=== PATIENT | male | born 1960 | race Caucasian/White ===

== ENCOUNTER → 2019-10-23 11:23 | Outpatient (CLI) | payer MEDICAID, SELFPAY ==
[2016-09-16 16:43] VITALS: BMI 31.7
[2019-10-23 15:09] LABS: AST(SGOT) 26 U/L (15-37); Alanine Aminotransfer ALT/SGPT 42 U/L (16-61); Albumin, Serum 3.9 g/dL (3.2-5.0); Alkaline Phosphatase 93 U/L (45-117); Anion Gap 8 (5-15); BUN 13 mg/dL (7-18); BUN/Creat Ratio 13.8 RATIO (10-20); Calcium,Total 8.8 mg/dL (8.5-10.1); Chloride 102 mmol/L (98-107); Cholesterol 189 mg/dL (200); Creatinine, Serum 0.94 mg/dL (0.70-1.30); EST Glomerular Filtration Rate 88 mL/min (>60); Est Glom Filt Rate - Afr Amer 106 mL/min (>60); Globulin 3.9 g/dL (2.2-4.2); Glucose 93 mg/dL (74-106); High Density Lipoprotein 28 mg/dL; PSA,Total - Annual Screen 0.61 ng/mL (0.00-4.00); Potassium 3.6 mmol/L (3.5-5.1); Protein, Total 7.8 g/dL (6.4-8.2); Sodium Level 137 mmol/L (136-145); Triglycerides 387 mg/dL; Very Low Density Lipoprotein 77 mg/dL (5-40)
[2019-10-23 15:55] LABS: Hemoglobin A1c 5.9 % (4.2-6.3)
== END ==
PROVIDERS: PCP Family Medicine; Referring Provider Family Medicine; Visit Provider Family Medicine
DX: I10 Essential (primary) hypertension (principal); R35.0 Frequency of micturition; Z13.220 Encounter for screening for lipoid disorders; Z12.5 Encounter for screening for malignant neoplasm of prostate
CPT/HCPCS: 36415; 80053; 80061; 83036; 84153; G0103

== ENCOUNTER → 2020-09-20 08:49 | Outpatient (CLI) | payer MEDICAID, SELFPAY ==
--- NOTE | 2020-09-20 08:53 | RAD_ITS ---
STUDY: X-RAY - PELVIS AND RIGHT HIP REASON FOR EXAM: Male, 59 years old. HIP PAIN TECHNIQUE: 3 views of the pelvis and hip. COMPARISON: None. FINDINGS: There is a non-specific bowel gas pattern. Surgical clips are seen in the pelvis most likely secondary to prior bilateral inguinal hernia repair. Normal bilateral iliac wings, sacroiliac joints and visualized sacrum. Normal bilateral superior and inferior pubic rami. Normal pubic symphysis. Normal bilateral ischial tuberosities. Normal visualized femoral head. Normal acetabulum. There is mild articular joint space narrowing of the hip. Mild degree of osteoarthritis of the left hip joint as well. Degenerative changes of the visualized lower lumbar spine. RAD/HIP, UNI W/ Pelvis 2-3 Views IMPRESSION: Mild degree of joint space narrowing of both hip joints. Electronically Signed: Reese Jackson MD at 12:48 EST , Service support ,
== END ==
PROVIDERS: PCP Family Medicine; Referring Provider Chiropractor; Visit Provider Chiropractor
DX: S73.191A Other sprain of right hip, initial encounter (principal); M25.551 Pain in right hip
CPT/HCPCS: 73502

== ENCOUNTER 2021-02-14 17:31 | Emergency (ER) | payer MEDICAID, SELFPAY ==
[2021-02-14 17:32] VITALS: BP 170/100; PULSE 80; RESP 16; TEMP 37.6; O2SAT 96; BMI 34.8
[2021-02-14 17:35] VITALS: BP 170/100; PULSE 80; RESP 16; TEMP 37.6; O2SAT 95
[2021-02-14 18:20] VITALS: O2SAT 95
--- NOTE | 2021-02-14 18:39 | EDS_ITS ---
HPI HPI - URI History of Present Illness Chief Complaint: Sore Throat Informant: patient Onset/Context/Timing Onset: Days (3-4) Context: Gradual Onset Timing: Continuous Current Severity: Moderate Maximum Severity: Moderate Associated Symptoms Associated Symptoms: Positive for Headache, Diarrhea, Nonproductive cough and - (Sore throat, subjective fevers); Negative for Nausea, Vomiting, Shortness of Breath and Chest Pain Narrative Narrative: Patient concerned he may have COVID-19. He has not been vaccinated. Other than hypertension he is healthy. 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 States he was at the [facility] urgent care yesterday and had swab for Covid and a chest x-ray but does not know the results of any of it needs to know. Denies dyspnea, chest discomfort, leg pain or swelling, history of PE/DVT. ROS ROS ED Constitutional Constitutional ED: Reports as per HPI, body ache(s), chills, fever(s) and malaise Eyes Eyes: Denies change in vision or diplopia ENT ENT ED: Reports sore throat; Denies rhinorrhea Cardiovascular Cardiovascular: Denies chest pain or palpitations Respiratory/Chest Respiratory/Chest: Reports cough; Denies dyspnea, excessive phlegm production or hemoptysis Gastrointestinal Gastrointestinal: Reports diarrhea; Denies abdominal pain, nausea or vomiting Genitourinary Genitourinary ED: Denies dysuria or hematuria Musculoskeletal Musculoskeletal: Denies back pain or neck pain Integumentary Denies abscess or rash Neurologic Neurologic: Reports headache(s); Denies paresthesias or weakness Psychiatric Psychiatric: Denies anxiety or suicidal thoughts [facility] Medical History (Updated 02/14/21 @ 21:[address] Donny Palacio MD) Hypertension Home Medications atenolol 75 mg PO DAILY 05/22/13 [History Last Taken 09/16/16] lisinopril 20 mg PO DAILY 02/14/21 [History Last Taken Unknown] omeprazole 20 mg PO DAILY 02/14/21 [History Last Taken Unknown] tadalafil 5 mg PO DAILY 02/14/21 [History Last Taken Unknown] Allergy/AdvReac Type Severity Reaction Status Date / Time Penicillins Allergy Unknown Verified 02/14/21 17:32 venom-honey bee Allergy Swelling Verified 02/14/21 17:32 [bee venom (honey bee)] acetaminophen [From Vicodin] AdvReac Other Verified 02/14/21 17:32 hydrocodone bitartrate AdvReac Other Verified 02/14/21 17:32 [From Vicodin] Social History Smoking Status: Former smoker EXAM Physical Exam Const Vital Signs: 02/14/21 17:32 02/14/21 17:35 02/14/21 18:20 Temperature 99.7 F H 99.7 F H Temperature Source Temporal Temporal Pulse Rate 80 80 Respiratory Rate 16 16 Respiratory Effort Respiratory Pattern Blood Pressure 170/100 H 170/100 H Blood Pressure Mean 123 123 Pulse Ox 96 95 95 Oxygen Delivery Method Room Air Room Air Room Air 02/14/21 19:27 02/14/21 19:31 02/14/21 19:35 Temperature 99.1 F Temperature Source Temporal Pulse Rate 89 Respiratory Rate 16 15 Respiratory Effort Normal Non-Labored Respiratory Pattern Normal Blood Pressure 146/95 H Blood Pressure Mean 112 Pulse Ox 99 99 Oxygen Delivery Method Room Air Room Air Positive well nourished and well developed Constitutional Narrative: Well-appearing conversive in full sentences General Appearance ED: well developed and NAD HEENT Reports moist mucous membranes normocephalic and atraumatic Eyes PERRL and EOMs intact bilaterally Neck full ROM, no lymphadenopathy, supple and no meningeal signs Resp normal respiratory effort and clear to auscultation bilaterally Cardio regular rate, regular rhythm and no murmurs GI non-tender and non-distended Auscultation: normoactive bowel sounds Palpation: soft Back/Spine no CVA tenderness General Back: other FROM Extremity normal to inspection General Extremety ED: Negative for edema, pulses abnormal or tenderness General Extremity: Negative for edema or pulses abnormal Neuro oriented x3, CN's II-XII intact bilaterally and no sensory deficits noted Sensorium / Orientation: awake and alert Motor Exam: strength 5/5 throughout Skin no rashes or lesions noted and no wounds MDM MDM MDM Narrative Medical decision making narrative: Chest x-ray normal, rapid Covid returns positive confirming that he does have Covid. He is not hypoxic, his blood pressure came down from his initial triage blood pressure down to 146/95. His vital signs are stable he is clinically well-appearing does not require hospitalization or oxygen. He is currently 99% on room air. Given his history of hypertension, he may meet criteria for monoclonal antibody treatment so he was referred and discharged advised to isolate. He was offered medications but declined such as Toradol. Lab Data Attestation: I reviewed the patient's lab results. Labs: Laboratory Results - last 24 hr 02/14/21 18:40 Lactic Acid 1.0 Radiography Diagnostic Testing: Radiology Impression Chest X-Ray 02/14/21 18:50 IMPRESSION: No acute radiographic abnormalities. Electronically Signed: Carlos Louie MD at 19:35 EDT Tel , Service support , Discharge Plan Triage Chief Complaint: Sore Throat ED Provider: Donny Palacio Dx/Rx/DC Orders Clinical Impression: COVID-19 Instructions: Coronavirus Disease 2019 (COVID-19): Caring for Yourself or Others, ED - COVID Monoclonal AB Infusion ... Prescriptions: No Action atenolol 100 MG tablet 75 mg PO DAILY RF: 0 lisinopril 20 mg tablet 20 mg PO DAILY RF: 0 tadalafil 5 mg tablet 5 mg PO DAILY RF: 0 omeprazole 20 mg tablet,delayed release (DR/EC) 20 mg PO DAILY RF: 0 Other Ambulatory Orders: COVID: Outpatient Monoclonal Antibody Referral (Routine) Location: None Selected Ordered By: Dr. Donny Palacio Primary Care Provider: Silvio Rowland Referrals: Silvio Rowland MD [Primary Care Provider] - Activity Restrictions/Additional Instructions: You may be a candidate for the Covid monoclonal antibody infusion, its goal is to prevent your COVID-19 from getting worse and requiring hospitalization. If you are a candidate you will receive a phone call regarding it. It is performed as an outpatient, not here now. Disposition Disposition: Home, Self Care
--- NOTE | 2021-02-14 18:50 | RAD_ITS ---
INDICATION: cough EXAMINATION/TECHNIQUE: X-RAY - XR Chest 1 View COMPARISON: None. FINDINGS: The lungs are clear. The cardiomediastinal silhouette is unremarkable. No pleural effusion or pneumothorax. Degenerative changes of the thoracic spine. RAD/Chest 1 View (Portable) IMPRESSION: No acute radiographic abnormalities. Electronically Signed: Carlos Louie MD at 19:35 EDT Tel , Service support ,
[2021-02-14 19:31] VITALS: RESP 16; O2SAT 99
[2021-02-14 19:35] VITALS: BP 146/95; PULSE 89; RESP 15; TEMP 37.3; O2SAT 99
[2021-02-14 21:48] VITALS: BP 135/96; PULSE 75; PULSE 76; RESP 16; RESP 18; TEMP 36.6; O2SAT 97
== END 2021-02-14 21:51 | disposition home or self-care (01) ==
PROVIDERS: Emergency Provider Emergency Medicine; PCP Family Medicine
DX: U07.1 COVID-19 (principal); R19.7 Diarrhea, unspecified; I10 Essential (primary) hypertension; Z79.899 Other long term (current) drug therapy; Z87.891 Personal history of nicotine dependence
CPT/HCPCS: 71045; 83605; 87040; 87426; 94760; 99282

== ENCOUNTER 2021-02-18 14:15 | Outpatient (CLI) | payer MEDICAID, SELFPAY ==
[2021-02-17 11:10] VITALS: BMI 34.8
[2021-02-18 14:29] VITALS: BP 108/78; PULSE 96; RESP 20; TEMP 38.1; O2SAT 95; BMI 34.7
[2021-02-18] MEDS: 0.9% Saline Lock 10 ML Syringe IV ×2 (14:54→15:22)
[2021-02-18 14:56] VITALS: BP 124/77; PULSE 70; RESP 20; TEMP 37.2; O2SAT 99
[2021-02-18 15:22] VITALS: BP 132/85; PULSE 70; RESP 18; TEMP 36.4; O2SAT 99
[2021-02-18 15:52] VITALS: BP 134/66; PULSE 74; RESP 18; TEMP 37.5; O2SAT 97
[2021-02-18 16:22] VITALS: BP 124/70; PULSE 74; RESP 20; TEMP 37.7; O2SAT 96
== END 2021-02-18 16:29 | disposition home or self-care (01) ==
LOC: ICUOUT 14:15 → ICU 14:17
PROVIDERS: PCP Family Medicine; Referring Provider Nurse Practitioner Acute Care; Visit Provider Nurse Practitioner Acute Care
DX: Z23 Encounter for immunization (principal); U07.1 COVID-19
CPT/HCPCS: M0243; A4216; Q0244

== ENCOUNTER 2023-06-09 15:45 | Emergency (ER) | payer MEDICAID, SELFPAY ==
[2023-06-09 15:48] VITALS: BP 167/83; PULSE 59; RESP 14; TEMP 36.3; O2SAT 96; BMI 32.7
--- NOTE | 2023-06-09 16:18 | CT_ITS ---
STUDY: CT BRAIN WITHOUT CONTRAST REASON FOR EXAM: Male, 62 years old. Trauma RADIATION DOSAGE (If Supplied By Facility): CTDIvol = ( 44.99 ) mGy, DLP = ( 812.98 ) mGycm TECHNIQUE: Transaxial CT imaging of the brain was performed without administration of intravenous contrast material. Individualized dose optimization techniques were used for this CT. COMPARISON: No relevant priors. FINDINGS: Normal soft tissue structures. Normal calvarium. Normal size ventricles and extra-axial spaces for the patient''s age. Diminished density of the right caudate head and basal ganglia likely sequela of previous ischemic event. Normal basal ganglia and thalami. Normal brainstem. Normal cerebellum. There is no intracranial hemorrhage. There are no findings of an acute ischemic infarction. Normal visualized paranasal sinuses. CT/Brain/Head without Contrast IMPRESSION: 1. No acute intracranial hemorrhage or mass effect. 2. Right caudate head and basal ganglia lacunar infarctions. Electronically Signed: Kenrick Mcgraw MD ([place]) at 17:23 EST Reading Location ID and State: [facility] / [place] , Service support ,
--- NOTE | 2023-06-09 16:18 | CT_ITS ---
EXAM: CT CERVICAL SPINE WITHOUT INTRAVENOUS CONTRAST CLINICAL INDICATION: Trauma TECHNIQUE: Helically acquired images were obtained of the cervical spine without intravenous contrast. 2D reformatted images were reviewed. This CT exam was performed using one or more of the following dose reduction techniques: automated exposure control, adjustment of the mA and/or kV according to patient size, and/or use of iterative reconstruction technique. RADIATION DOSE: CTDIvol = 24.70 mGy, DLP = 634.01 mGy-cm COMPARISON: No relevant prior studies available. FINDINGS: VERTEBRAE: No destructive bony process. No cervical spine fracture. Anterior spondylosis at multiple cervical levels. DISCS/SPINAL CANAL/NEURAL FORAMINA: Multilevel bilateral foraminal stenosis particularly at C4-C5, C5-C6 6-C7 caused by uncovertebral hypertrophy. 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 Disc space narrowing predominantly at C5-C6 and C6-C7. SOFT TISSUES: Unremarkable. No prevertebral soft tissue swelling. LYMPH NODES: Unremarkable. No cervical adenopathy. LUNG APICES: Unremarkable as visualized. Clear. CT/Spine Cervical without Contras IMPRESSION: No acute findings in the cervical spine. Electronically Signed: Kenrick Mcgraw MD ([place]) at 17:27 EST Reading Location ID and State: [facility] / [place] , Service support ,
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
--- NOTE | 2023-06-09 17:03 | RAD_ITS ---
STUDY: X-RAY - LUMBAR SPINE REASON FOR EXAM: Male, 62 years old. Injury/Pain -- Palpation over L2 and L3 TECHNIQUE: 3 view(s) of the lumbar spine were obtained. COMPARISON: None FINDINGS: Normal lumbar lordosis. There is a levoscoliosis of the lumbar spine. There is a normal alignment of the vertebrae. There is diffuse demineralization with multi-level endplate spondylosis. There is multi-level degenerative disc disease with multi-level disc space narrowing. There is no demonstrated fracture. Multilevel facet arthropathy. The soft tissue structures are unremarkable. RAD/Lumbar Spine 2 or 3 Views IMPRESSION: Degenerative disc disease and facet arthropathy. No compression fracture. Electronically Signed: Kenrick Mcgraw MD ([place]) at 17:28 EST ,
[2023-06-09 17:04] LABS: Anion Gap 5 (5-15); BUN 23 mg/dL (7-18); Chloride 106 mmol/L (98-107); EST Glomerular Filtration Rate 81 mL/min (>60); Est Glom Filt Rate - Afr Amer 98 mL/min (>60); Estimated Creatinine Clearance 78.56 ml/min; Glucose 98 mg/dL (74-106); Potassium 4.2 mmol/L (3.5-5.1); Sodium Level 138 mmol/L (136-145)
[2023-06-09 17:05] LABS: Absolute Lymphocyte Count 1.69 X10^3/uL (0.83-4.51); Absolute Neutrophil Count 4.2 X10^3/uL (2.0-7.7); Basophil# 0.04 X10^3/uL; Basophil% 0.6 % (0-1); Eosinophil# 0.17 X10^3/uL; Eosinophils% 2.6 % (0-5); Hematocrit 45.1 % (40-54); Hemoglobin 15.2 g/dL (13.0-16.5); Lymphocyte # 1.69 X10^3/ul (0.83-4.51); Lymphocyte % 25.6 % (19-41); Mean Corp Hgb Conc 33.7 g/dL (32-36); Mean Corpuscular Hgb 30.8 pg (27.0-32.0); Mean Corpuscular Volume 91.5 fL (80-94); Mean Platelet Vol. 9.7 fl (6.2-12.0); Monocyte# 0.45 X10^3/uL; Monocyte% 6.8 % (0-10); NRBC Flagged by Analyzer 0 % (0-5); Neutrophil % 63.8 % (47-70); Platelet Count 214 K/mm3 (150-450); RBC Distribution Width CV 13.1 % (11.6-14.6); RBC Distribution Width SD 43.6 fl (35.1-43.9); Red Blood Count 4.93 M/mm3 (4.6-6.2); White Blood Count 6.6 K/mm3 (4.4-11.0)
== END 2023-06-09 18:06 | disposition home or self-care (01) ==
PROVIDERS: Emergency Provider Emergency Medicine; PCP Family Medicine; Visit Provider Emergency Medicine
DX: S06.0X0A Concussion without loss of consciousness, initial encounter (principal); S39.012A Strain of muscle, fascia and tendon of lower back, initial encounter; R41.82 Altered mental status, unspecified; S16.1XXA Strain of muscle, fascia and tendon at neck level, initial encounter; S29.9XXA Unspecified injury of thorax, initial encounter; V57.5XXA Driver of pick-up truck or van injured in collision with fixed or stationary object in traffic accident, initial encounter; Y93.84 Activity, sleeping; I10 Essential (primary) hypertension; Z79.899 Other long term (current) drug therapy; Z87.891 Personal history of nicotine dependence
CPT/HCPCS: 70450; 72100; 72125; 80048; 85025; 93005; 99285; A4216